=== PATIENT | female | born 1975 | race Two or more races ===

== ENCOUNTER 2017-02-04 13:41 | Emergency (ER) | payer SELFPAY ==
[~2017-02-04] VITALS: Ht 170.2 cm; Wt 70.0 kg
[2017-02-04 17:19] VITALS: BP 100/69
== END 2017-02-04 17:20 | disposition home or self-care (01) ==
LOC: ER 13:56
DX: F10.129 Alcohol abuse with intoxication, unspecified (principal); Y90.9 Presence of alcohol in blood, level not specified
CPT/HCPCS: 99283; Z7610

== ENCOUNTER 2017-03-18 22:47 | Emergency (ER) | payer SELFPAY ==
[~2017-03-18] VITALS: Ht 167.6 cm; Wt 68.0 kg
[2017-03-18] MEDS ORDERED: SODIUM CHLORIDE 0.9% 1,000 ML IV ONE (23:35)
[2017-03-19 00:12] LABS: BASOPHILS % 0.6 % (0.0-2.0); EOSINOPHILS % 2.5 % (0.0-5.0); HEMOGLOBIN. 12.5 g/dL (12.0-16.0); LYMPHOCYTES % 40.1 % (20.0-50.0); MEAN CORPUSCULAR HEMOGLOBIN 34.1 pg (28.0-32.0); MONOCYTES % 6.8 % (2.0-8.0); PLATELET 251 x1000/uL (130-400); RED BLOOD CELL COUNT 3.67 mill/uL (4.2-5.4); RED CELL DISTRIBUTION WIDTH 13.6 % (11.6-14.6)
[2017-03-19 00:16] LABS: CHLORIDE 111 mEq/L (98-107)
[2017-03-19 00:24] LABS: HCG SCREEN NEGATIVE
[2017-03-19 00:29] LABS: CARBON DIOXIDE 26 mEq/L (21-32)
[2017-03-19 00:30] LABS: ETHANOL BLOOD 379 mg/dL
[2017-03-19 03:17] LABS: CLARITY URINE CLOUDY (CLEAR); COLOR URINE YELLOW (YELLOW); GLUCOSE URINE NEGATIVE (NEGATIVE); KETONES URINE NEGATIVE (NEGATIVE); LEUKOCYTE ESTERASE URINE 2+ (NEGATIVE); NITRITE URINE NEGATIVE (NEGATIVE); OCCULT BLOOD URINE NEGATIVE (NEGATIVE); PROTEIN URINE NEGATIVE (NEGATIVE); SPECIFIC GRAVITY URINE 1.018 (1.005-1.030); UROBILINOGEN URINE 0.2 E.U./dL (0.2-1.0)
[2017-03-19 04:08] LABS: *AMPHETAMINES SCREEN URINE NEGATIVE (NEGATIVE); *BARBITURATES SCREEN URINE NEGATIVE (NEGATIVE); *BENZODIAZEPINES SCREEN URINE NEGATIVE (NEGATIVE); *COCAINE SCREEN URINE NEGATIVE (NEGATIVE); METHADONE URINE SCREEN NEGATIVE (NEGATIVE); OPIATES URINE SCREEN NEGATIVE (NEGATIVE); PHENCYCLIDINE URINE SCREEN NEGATIVE (NEGATIVE)
[2017-03-19 04:09] LABS: CANNABINOID URINE SCREEN PRESUMTIVE POSITIVE (NEGATIVE)
[2017-03-19 06:37] VITALS: BP 107/56
== END 2017-03-19 12:10 | disposition left against medical advice (07) ==
LOC: ER 23:00
DX: F10.229 Alcohol dependence with intoxication, unspecified (principal); Y90.8 Blood alcohol level of 240 mg/100 ml or more
CPT/HCPCS: 36415; 70450; 80053; 80305; 80329; 81001; 84703; 85025; 96360; 99285; G0482; J7030; Z7610